=== PATIENT | male | born 1965 | race Two or more races ===

== ENCOUNTER 2024-11-21 14:26 | Outpatient (RCR) | payer MEDICAID, SELFPAY ==
--- NOTE | 2024-11-08 14:43 | CTCCONSULT_ITS ---
[facility] [address] [place], [place] [address] Consultation Note Date: 11/08/2024 MR#: [id number] Name: STEPHANIE GIRALDO : 1965 Dx: C49.21 Malig neoplm of conn and soft tiss of r low limb, inc hip Attending physician. Kailash Rudolph PA-C [facility] Reason for consultation. Patient with leiomyosarcoma poorly differentiated right posterior thigh referred to the cancer treatment center. 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 According to derma pathologist Allie Zambrano MD comment, the dermal base tumor somewhat circumscribed showing prominent nuclear pleomorphism hyper cremation and ample pink cytoplasm with bizarre nuclei also seen mitosis quite frequent. Ki-67 nuclear proliferative index of 60%. Various stainings support poorly differentiated cutaneous leiomyosarcoma. Past Medical History: Hypertension prior appendectomy Meds. 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 Assessment:#1. Poorly differentiated leiomyosarcoma right posterior thigh high Ki-67 of 60% mitosis quite frequent according to pathologist. #2. MRI of the right thigh area. CT scan chest abdomen pelvis. #3. Referral to oncologic orthopedist. #4. Referral to medical oncologist Dr. Serrano #5. Comprehensive recommendation after all the major specialists will have seen the patient. Thank you for allowing me to evaluate this patient. Cc: Kailash Rudolph PA-C [facility] Electronically signed by: Sammy Trujillo MD, DABR 11/08/2024 2:41 PM
== END 2024-11-24 23:59 | disposition home or self-care (01) ==
LOC: SCTC 14:26
PROVIDERS: PCP Physician Assistant; Referring Provider Physician Assistant; Visit Provider Radiology Therapeutic Radiology
DX: C49.21 Malignant neoplasm of connective and soft tissue of right lower limb, including hip (principal)
CPT/HCPCS: 99213; G0463

== ENCOUNTER → 2024-11-21 | Outpatient (CLI) | payer MEDICAID, SELFPAY ==
--- NOTE | 2024-11-21 13:30 | XR_ITS ---
Examination: CT chest with intravenous contrast CT abdomen with intravenous contrast CT pelvis with intravenous contrast 2-D coronal and sagittal reconstructions Time of exam: November 13, 2024, 1401 hours INDICATIONS: Neoplasm right hip, carcinoma diagnosis September 2024, staging CTDI: vol (mGy) : 20.4 DLP: (mGycm): 1005 Technique: Multiple axial images of the chest, abdomen and pelvis with intravenous contrast, 3.0 mm slice thickness. Images obtained post intravenous injection Isovue 370 60 cc. 2-D sagittal and coronal reconstructions. Low dose protocols were performed. One or more of the following dose reduction techniques were used; automated exposure control, adjustment of the mA and/or KV according to patient size, use of iterative reconstruction technique. Findings: No thoracic aortic aneurysm dilatation No pulmonary artery filling defects. No paratracheal tracheobronchial or bronchopulmonary adenopathy 3 mm pulmonary nodule right middle lobe image 183 No pneumonia or pulmonary edema No visualized liver or splenic lesion No gallstones No pancreatic mass No hydronephrosis Aorta normal size No adrenal mass No abdominal lymphadenopathy No bowel obstruction No pelvic lymphadenopathy Transverse prostate dimension 5.7 cm No bladder mass Moderate osteopenia Hips bones of the pelvis intact IMPRESSION: 3 mm pulmonary nodule right middle lobe, with this study as baseline recommend 6 month follow-up CT chest without contrast No abdominal or pelvic mass No abdominal or pelvic lymphadenopathy Moderate prostatomegaly
== END | disposition home or self-care (01) ==
PROVIDERS: PCP Physician Assistant; Referring Provider Radiology Therapeutic Radiology; Visit Provider Radiology Therapeutic Radiology
DX: R91.1 Solitary pulmonary nodule (principal); C49.21 Malignant neoplasm of connective and soft tissue of right lower limb, including hip
CPT/HCPCS: 71260; 74177; A4649; Q9967

== ENCOUNTER → 2024-11-30 | Outpatient (CLI) | payer MEDICAID, SELFPAY ==
--- NOTE | 2024-11-30 14:00 | XR_ITS ---
Examination: MRI right femur, without intravenous contrast. MRI right femur , with intravenous contrast. Exam date and time: November 30, 2024 1558 hours INDICATIONS: Diagnosis malignant neoplasm connective and soft tissue right lower limb: Short-including hip Technique: Multiple axial, sagittal and coronal images of the right femur have been obtained with the Siemens high-resolution 1.5 [employer] MRI scanner. Images obtained included T2 weighted fat suppressed sagittal sections, TR 3500, TE 46, T2 weighted coronal fat suppressed images, TR 3050, TE 84, T2-weighted transverse fat suppressed images, TR 30-60, TE 63, proton density transverse images, TR 4720, TE 46, and T1 weighted coronal images, TR 560, TE 13. Axial, sagittal and coronal images are obtained post intravenous injection 20 cc gadolinium. Findings: At the marker site posterior right femur there is no soft tissue mass and no enhancement Cortex of the right hip and femoral shaft appear intact No mass within the muscle of the femur noted No abnormal enhancement involving osseous structures on the postcontrast images IMPRESSION: At the marker site posterior to the right femur there is no soft tissue mass and no abnormal enhancement Recommend ultrasound soft tissue at this area of concern to exclude lipomatous mass
== END | disposition home or self-care (01) ==
PROVIDERS: PCP Physician Assistant; Referring Provider Radiology Therapeutic Radiology; Visit Provider Radiology Therapeutic Radiology
DX: C49.21 Malignant neoplasm of connective and soft tissue of right lower limb, including hip (principal)
CPT/HCPCS: 73720; A9579

== ENCOUNTER 2024-12-22 09:16 | Outpatient (RCR) | payer MEDICAID, SELFPAY ==
--- NOTE | 2024-12-08 11:53 | CTCCONSULT_ITS ---
Patient: STEPHANIE GIRALDO : 1965 MR#: [id number] Page 2 of 4 CONSULTATION NOTE DATE OF CONSULTATION: 12/08/2024 NAME: STEPHANIE GIRALDO ACCOUNT: [id number] : 1965 AGE: 59 REFERRING PHYSICIAN: Kailash Rudolph MD PRIMARY PHYSICIAN: REASON FOR VISIT: leiomyosarcoma poorly differentiated right posterior thigh ONCOLOGY HISTORY: DIAGNOSIS: Malig neoplm of conn and soft tiss of r low limb, inc hip [ICD10] C49.21 DATE OF DIAGNOSIS: STAGE/TNM: TREATMENT HISTORY: Care?Plan Start?Date Cycle Day Intent HISTORY OF PRESENT ILLNESS: 59-year-old male who noticed a growth in the posterior right thigh for a few weeks about the size of a marble which was excised by primary care provider 10/05/2024 with the pathology of tissue measuring 2.0 x 1.0 x 0.4 cm 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 According to derma pathologist Allie Zambrano MD comment, the dermal base tumor somewhat circumscribed showing prominent nuclear pleomorphism hyper cremation and ample pink cytoplasm with bizarre nuclei also seen mitosis quite frequent. Ki-67 nuclear proliferative index of 60%. Various stainings support poorly dif ferentiated cutaneous leiomyosarcoma. OTHER MEDICAL HISTORY/CONDITIONS: Leiomyosarcoma- dx 10/05/24 HTN Hyperlipidemia GERD Appendectomy?-?1989 FAMILY HISTORY: Patient?denies?family?cancer?history. 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 Tobacco Use:?Quit 25yrs ago-Smoke 15 yrs- 10 cigarettes/day ETOH?Use:?Denies Drug?Note:?Denies Social History Note:?Lives with and children MEDICATIONS: 1. amlodipine - 10 mg 1 tab Daily 2. atorvastatin - 10 mg 1 tab Daily 3. losartan-hydrochlorothiazide - 100-12.5 mg 1 tab Daily 4. niacin - 500 mg Daily 5. pantoprazole - 40 mg Daily 6. terbinafine HCl - 250 mg Daily Medications Last Reconciled by Summer Jo RN on 12/08/2024 ALLERGIES: Sulfa (Sulfonamide Antibiotics); Sulfa (Sulfonamide Antibiotics) REVIEW OF SYSTEMS: A complete 14-point review of systems was performed and is negative except as noted in interval history. PHYSICAL EXAMINATION: VITAL SIGNS: Temperature?98.8, B/P?153/87, Height?62.25?inches, Oxygen?Saturation?96% Weight?220?lbs (Change?since?11/08/24:?2?lbs) PAIN: 0 - No pain ECOG Performance Status: 1 - Symptomatic; ambulatory; restricted in strenuous activity GENERAL APPEARANCE: Appears well, in no apparent distress, appropriately interactive. HEENT: Normocephalic, no temporal wasting, normal conjunctiva, no scleral icterus, normal hearing, lips without lesions, neck normal range of motion. CARDIOVASCULAR: Not assessed. PULMONARY: Normal respiratory effort, no respiratory distress or use of accessory muscles, speaking in full sentences, no tachypnea. EXTREMITIES: No pedal edema or cyanosis. SKIN: Normal skin appearance. NEUROLOGIC: Alert and oriented x4. PSHYCHIATRIC: Appropriate affect, mood normal, behavior normal, intact thought and speech. LABORATORY DATA: I have personally reviewed and interpreted each of the patient?s relevant lab tests, abnormal findings are below: Date ASSESSMENT/PLAN: cutaneous leiomyosarcoma with poorly differentiated features. Mri reviewed and show no residual tumor Will send patient to sarcoma center for complete resection. Patient had a biopsy which showed poorly differentiated sarcoma but no margins study is available and MRI is negative Patient today is complaining of new mass in the arm Will get PET CT scan to evaluate if patient has metastatic sarcoma RTC with PET CT scan and evaluation by sarcoma surgeons ORDERS: Order # Description [id number] Initial PET/CT of Whole Body [id number] Comprehensive Metabolic Panel - 12 + CBC with Auto Diff + MD Follow Up 4 Week [id number] RETURN TO CLINIC: I reviewed the diagnosis, prognosis, and recommended treatment/procedure options with the patient (and/or their legal professional healthcare representative), including the potential benefits, risks, side effects and alternative therapies. We also discussed the option of no treatment and the possibility of clinical trial participation, if applicable. All questions were addressed, and they demonstrated understanding. They provided informed consent to proceed with the proposed plan of care. BILLING AND COMPLIANCE: I reviewed external records from providers outside my specialty as summarized above. I spent a total of 50 minutes on this patient?s care on the day of their visit excluding time spent related to any billed procedures. This time includes time spent with the patient as well as time spent documenting in the medical record, reviewing patients records and tests, obtaining history, placing orders, communicating with other healthcare professionals, counseling the patient, family or caregiver, and/or care coordination for the diagnoses above. Electronically Signed by: {Object.Sanct_ID*PnP.NameFL@M}, {Object.Sanct_ID*PnP.Suffix@U} D: {Object.Sanct_Date} T: {Object.Sanct_Time} CC: PCP: Referring: Kailash Rudolph This document was completed utilizing speech recognition software. Grammatical errors, random word insertions, pronoun errors, and incomplete sentences are an occasional consequence of this system due to software limitations, ambient noise, and hardware issues. Any formal questions or concerns about the content, text or information contained within the body of this dictation should be directly addressed to the provider for clarification.
--- NOTE | 2024-12-23 16:51 | CTCFLWUP_ITS ---
[facility] [address] [place], [place] [address] FOLLOW-UP NOTE Date: 12/23/2024 MR#: [id number] Name: STEPHANIE GIRALDO : 1965 Dx: C49.21 Malig neoplm of conn and soft tiss of r low limb, inc hip Addendum. As suggested by MRI result of 11/30/2024, ultrasound of the right posterior thigh where the marker was placed will be ordered. Family informed. Electronically signed by: Sammy Trujillo M.D. 12/23/2024 4:49 PM
== END 2024-12-25 23:59 | disposition home or self-care (01) ==
LOC: SCTC 09:16
PROVIDERS: PCP Physician Assistant; Referring Provider Physician Assistant; Visit Provider Radiology Therapeutic Radiology
DX: C49.21 Malignant neoplasm of connective and soft tissue of right lower limb, including hip (principal); R22.30 Localized swelling, mass and lump, unspecified upper limb
CPT/HCPCS: 99212; 99213; G0463

== ENCOUNTER → 2024-12-27 | Outpatient (CLI) | payer MEDICAID, SELFPAY ==
--- NOTE | 2024-12-27 14:00 | XR_ITS ---
EXAMINATION: PET/CT FUSION SKULL TO THIGH EXAM DATE AND TIME: December 27, 2024 1449 hours, comparison MRI femur, right, CT chest May 14, 2024 INDICATIONS: Diagnosis malignant neoplasm connective and soft tissue right lower limb CTDI:vol (mGy) 13.27 DLP: (mGycm) 1314.69 PROCEDURE: 17.21 mCi FDG was administered intravenously To allow for distribution and uptake of radiotracer, the patient was allowed to rest quietly in a shielded room. Imaging was performed on an integrated 16-slice PET/CT scanner, with scanning from the skull base to the mid thigh. CT scanning was performed without oral or intravenous contrast material. FINDINGS: Head and Neck: There is no pelon hypermetabolism in the neck. The visualized portions of the brain are normal in appearance on CT. Chest: There is no pelon hypermetabolism in the chest. There are no pulmonary nodules. Abdomen and Pelvis: There is no pelon hypermetabolism in retroperitoneal or pelvic chains. The spleen is normal in size and FDG avidity. Musculoskeletal: Marrow uptake is within normal range. No hypermetabolic femur lesion IMPRESSION: No abnormal hypermetabolic activity noted Please see the CT chest report November 21, 2024
== END | disposition home or self-care (01) ==
PROVIDERS: PCP Physician Assistant; Referring Provider Internal Medicine Hematology & Oncology; Visit Provider Internal Medicine Hematology & Oncology
DX: C49.21 Malignant neoplasm of connective and soft tissue of right lower limb, including hip (principal)
CPT/HCPCS: 78816; A9552

== ENCOUNTER → 2025-01-18 | Outpatient (CLI) | payer MEDICAID, SELFPAY ==
--- NOTE | 2025-01-18 12:00 | XR_ITS ---
Examination: Ultrasound soft tissue extremity right lower extremity TECHNIQUE: Grayscale sonographic images soft tissue posterior right lower leg Date and time: January 18, 2025 1155 hours INDICATIONS: Diagnosis malignant neoplasm connective tissue and soft tissue right lower limb, 10 mm hypermetabolic focus in the soft tissue right lower leg [address] scan 12/27/2024 FINDINGS: Cystic solid mass in the soft tissue right lower leg laterally, vascular, 19 x 16 x 16 mm IMPRESSION: Positive for complex cystic solid mass consistent with soft tissue tumor in the right lower leg laterally, 19 x 16 x 16 mm
== END | disposition home or self-care (01) ==
PROVIDERS: PCP Radiology Therapeutic Radiology; Referring Provider Radiology Therapeutic Radiology; Visit Provider Radiology Therapeutic Radiology
DX: R22.41 Localized swelling, mass and lump, right lower limb (principal); C49.21 Malignant neoplasm of connective and soft tissue of right lower limb, including hip
CPT/HCPCS: 76882

== ENCOUNTER 2025-01-23 15:41 | Outpatient (RCR) | payer MEDICAID, SELFPAY ==
--- NOTE | 2025-01-29 21:23 | CTCFLWUP_ITS ---
Patient: STEPHANIE GIRALDO : 1965 Page 3 of 5 FOLLOW UP NOTE DATE OF SERVICE: 01/23/2025 NAME: STEPHANIE GIRALDO ACCOUNT: [id number] : 1965 AGE: 59 INTERVAL HISTORY: Arturo Montiel, a male with history of myelodysplastic syndrome (2018), presented for follow-up after recent hospitalizations for melena and newly diagnosed colon cancer. During hospitalization (January 01-2024), workup revealed multiple ileal ulcers and incidental finding of invasive moderately differentiated adenocarcinoma in a sigmoid colon polyp. Management includes CT chest/abdomen/pelvis for staging, iron studies, CEA level, referral to colorectal surgeon, and treatment planning based on final staging (surveillance for stage 1, chemotherapy for stages 2-4). Subjective History of Present Illness Arturo Montiel is a patient with a history of myelodysplastic syndrome presenting for follow-up after recent hospitalizations due to gastrointestinal bleeding and newly diagnosed colon cancer. The patient was initially seen in 2019 for MDS, with no evidence of leukemia or lymphoma at that time, but did not return for follow-up until now. The patient recently experienced episodes of melena, leading to two hospital admissions. He first presented to [facility] on January 01 with melena. Despite negative findings on EGD, colonoscopy, and nuclear medicine RBC scan, he was readmitted on January 07 due to recurrent melena. He was then transferred to [facility] on January 08 and discharged on January 12. During this hospitalization, a capsule study showed no active bleeding but raised concern for Meckel's diverticulum. A retrograde double-balloon endoscopy revealed multiple ulcers in the ileum. The patient did not require blood transfusions during these admissions. Significantly, a pathology report from a sigmoid colon biopsy revealed invasive moderately differentiated adenocarcinoma arising from an adenoma with high-grade dysplasia. This finding was incidental, discovered in a small polyp removed during the procedure. The patient was informed that he has colon cancer, which will require further evaluation and treatment. Medical History - Myelodysplastic syndrome evaluated in 2019 - Hospitalization for melena on January 01, 2025 - Repeat hospitalization for melena on January 07, 2025, transferred to another hospital on January 08, 2025, and discharged on January 12, 2025 Surgical History - Colonoscopy with polypectomy, sigmoid colon Review of Systems Gastrointestinal: Positive for melena. Objective Laboratory, Imaging, and Diagnostic Test Results - Colonoscopy: Negative for acute bleed - Nuclear medicine RBC scan: Negative for bleed - Capsule study: No active bleeding, concern for Meckel's diverticulum - Retrograde double-balloon endoscopy: Multiple ulcers in the ileum - Pathology report: - Colon sigmoid: Invasive moderately differentiated adenocarcinoma arising from adenoma with high-grade dysplasia - Ileocecal valve: Tubular adenoma - Colon sigmoid polyp: Cancer detected ONCOLOGY HISTORY: DIAGNOSIS: Malig neoplm of conn and soft tiss of r low limb, inc hip [ICD10] C49.21 DATE OF DIAGNOSIS: STAGE/TNM: TREATMENT HISTORY: ?? 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 According to derma pathologist Allie Zambrano MD comment, the dermal base tumor somewhat circumscribed showing prominent nuclear pleomorphism hyper cremation and ample pink cytoplasm with bizarre nuclei also seen mitosis quite frequent. Ki-67 nuclear proliferative index of 60%. Various stainings support poorly dif ferentiated cutaneous leiomyosarcoma. OTHER MEDICAL HISTORY/CONDITIONS: Leiomyosarcoma- dx 10/05/24 HTN Hyperlipidemia GERD Appendectomy?-?1989 FAMILY HISTORY: Patient?denies?family?cancer?history. 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 Tobacco Use:?Quit 25yrs ago-Smoke 15 yrs- 10 cigarettes/day ETOH?Use:?Denies Drug?Note:?Denies Social History Note:?Lives with and children MEDICATIONS: 1. amlodipine - 10 mg 1 tab Daily 2. atorvastatin - 10 mg 1 tab Daily 3. losartan-hydrochlorothiazide - 100-12.5 mg 1 tab Daily 4. niacin - 500 mg Daily 5. pantoprazole - 40 mg As needed Medications Last Reconciled by Roselyn Soares MD on 01/23/2025 ALLERGIES: Sulfa (Sulfonamide Antibiotics); Sulfa (Sulfonamide Antibiotics) REVIEW OF SYSTEMS: A complete 14-point review of systems was performed and is negative except as noted in interval history. PHYSICAL EXAMINATION: VITAL SIGNS: Temperature?99, B/P?137/80, Oxygen?Saturation?95% Weight?221?lbs PAIN: 0 - No pain GENERAL APPEARANCE: Appears well, in no apparent distress, appropriately interactive. HEENT: Normocephalic, no temporal wasting, normal conjunctiva, no scleral icterus, normal hearing, lips without lesions, neck normal range of motion. CARDIOVASCULAR: Not assessed. PULMONARY: Normal respiratory effort, no respiratory distress or use of accessory muscles, speaking in full sentences, no tachypnea. EXTREMITIES: No pedal edema or cyanosis. SKIN: Normal skin appearance. NEUROLOGIC: Alert and oriented x4. PSHYCHIATRIC: Appropriate affect, mood normal, behavior normal, intact thought and speech. LABORATORY DATA: I have personally reviewed and interpreted each of the patient?s relevant lab tests, abnormal findings are below: Date ASSESSMENT/PLAN: Assessment and Plan Arturo Montiel is a male with a history of myelodysplasia presenting after recent diagnosis of sigmoid colon adenocarcinoma arising from adenoma during hospitalization for melena. Sigmoid colon adenocarcinoma Assessment: Patient was recently hospitalized from January 01-2024 for melena. Initial workup including EGD, colonoscopy, and nuclear medicine RBC scan were negative for active bleeding. Capsule study showed concern for Meckel's diverticulum. Retrograde double-balloon endoscopy revealed multiple ileal ulcers. Pathology from sigmoid colon biopsy showed invasive moderately differentiated adenocarcinoma arising from adenoma with high grade dysplasia. Additional findings included tubular adenoma at ileocecal valve and sigmoid polyp. Cancer was found within a small polyp that was removed. Staging is pending but likely stage 1 or 2 given the polyp-based presentation. Complete staging will determine treatment approach - stage 1 requires surveillance only, stages 2-3 require chemotherapy, and stage 4 is incurable but treatable with chemotherapy. Plan: - Order CT scan chest, abdomen, and pelvis to evaluate for lymphadenopathy and metastatic disease - Order iron studies to assess for iron deficiency - Order CEA level and cancer markers - Referral to colorectal surgeon Dr. Mckeon at [facility] for surgical evaluation and staging - Follow-up in 6 weeks after surgical consultation for complete staging results - Future management based on final staging: surveillance colonoscopy every 3-5 years if stage 1, chemotherapy if stages 2-4 Concern for myelodysplastic syndrome in past ? negative Assessment: Patient was previously evaluated by Dr. Myrick in 2019 for MDS with complete workup including labs. Testing at that time was negative for leukemia and lymphoma. Patient was lost to follow-up after initial evaluation. Plan: - No active management discussed for MDS at this visit cutaneous leiomyosarcoma with poorly differentiated features. Mri reviewed and show no residual tumor At alst visit patient was referred to follow at tertiary center ORDERS: Order # Description [id number] Comprehensive Metabolic Panel - 12 + CBC with Auto Diff + CEA + + MD Follow Up 4 Week [id number] Iron Panel + Ferritin + Vitamin B-12 + Folic Acid; Serum RETURN TO CLINIC: I reviewed the diagnosis, prognosis, and recommended treatment/procedure options with the patient (and/or their legal customer support representative), including the potential benefits, risks, side effects and alternative therapies. We also discussed the option of no treatment and the possibility of clinical trial participation, if applicable. All questions were addressed, and they demonstrated understanding. They provided informed consent to proceed with the proposed plan of care. BILLING AND COMPLIANCE: I reviewed external records from providers outside my specialty as summarized above. I spent a total of 50 minutes on this patient?s care on the day of their visit excluding time spent related to any billed procedures. This time includes time spent with the patient as well as time spent documenting in the medical record, reviewing patients records and tests, obtaining history, placing orders, communicating with other healthcare professionals, counseling the patient, family or caregiver, and/or care coordination for the diagnoses above. Electronically Signed by: Oscar Serrano MD T: 9:21 PM CC: PCP: Referring: Kailash Rudolph This document was completed utilizing speech recognition software. Grammatical errors, random word insertions, pronoun errors, and incomplete sentences are an occasional consequence of this system due to software limitations, ambient noise, and hardware issues. Any formal questions or concerns about the content, text or information contained within the body of this dictation should be directly addressed to the provider for clarification.
== END 2025-01-24 23:59 | disposition home or self-care (01) ==
LOC: SCTC 15:41
PROVIDERS: PCP Physician Assistant; Referring Provider Physician Assistant; Visit Provider Internal Medicine Hematology & Oncology
DX: C49.21 Malignant neoplasm of connective and soft tissue of right lower limb, including hip (principal)
CPT/HCPCS: 99212; G0463

== ENCOUNTER → 2025-04-07 | Outpatient (CLI) | payer MEDICAID, SELFPAY ==
--- NOTE | 2025-04-07 14:00 | XR_ITS ---
EXAMINATION: PET/CT FUSION SKULL TO THIGH EXAM DATE AND TIME: 04/07/2025 at 3:10 p.m. CTDI:vol (mGy) 9.93 DLP: (mGycm) 1917.1 INDICATION: Leiomyosarcoma right lower leg, comparison with previous PET/CT on 12/27/2024 PROCEDURE: mCi FDG was administered intravenously To allow for distribution and uptake of radiotracer, the patient was allowed to rest quietly in a shielded room. Imaging was performed on an integrated 16-slice PET/CT scanner, with scanning from the skull base to the mid thigh. Serum blood glucose at the time of the injection was measured mg/dL. CT scanning was performed without oral or intravenous contrast material. FINDINGS: Head and Neck: There is no pelon hypermetabolism in the neck. The visualized portions of the brain are normal in appearance on CT. Chest: There is no pelon hypermetabolism in the chest. There are no pulmonary nodules. Abdomen and Pelvis: There is no pelon hypermetabolism in retroperitoneal or pelvic chains. The spleen is normal in size and FDG avidity. Musculoskeletal: There is a small localized focus of markedly abnormal hypermetabolism noted anterolateral to the right mid fibula. This currently measures 1.6 cm in maximum diameter. It does not appear to involve the adjacent fibula. On the CT images the cortex and appearance of the fibula are normal in this region. Reference to the previous PET/CT shows a virtually identical appearance. However as best I can tell, the focus of marked abnormal hypermetabolism on the previous study on 12/27/2024 measured 10 mm in diameter, whereas on today's PET/CT scan it measures 16 mm in diameter Marrow uptake is within normal range. IMPRESSION: 1. There is only a single solitary focus of abnormal hypermetabolism seen anywhere on this exam. It is located anterolateral to the mid shaft of the right fibula. As best I can tell it does not involve the cortex of the fibula but is entirely in the adjacent soft tissues 2. By my measurements, the size has increased very minimally from a previous diameter of 10 mm to current diameter of 16 mm 3 this size measurement is considered to be unreliable, since it relates to a radioactive focus which has ill-defined margins, and overall I doubt that this small nodular lesion has changed in size at all since the previous exam.
== END | disposition home or self-care (01) ==
PROVIDERS: PCP Physician Assistant
DX: R93.7 Abnormal findings on diagnostic imaging of other parts of musculoskeletal system (principal); C49.9 Malignant neoplasm of connective and soft tissue, unspecified
CPT/HCPCS: 78816; A9552